=== PATIENT | male | born 1970 | race Two or more races ===

== ENCOUNTER → 2025-01-30 | Outpatient (BNVA) | payer MEDICAID, SELFPAY | END | disposition home or self-care (01) | PROVIDERS: PCP Nurse Practitioner Primary Care; Referring Provider Nurse Practitioner Primary Care; Visit Provider Nurse Practitioner Primary Care | DX: Z00.01 Encounter for general adult medical examination with abnormal findings (principal); R73.03 Prediabetes; Z12.11 Encounter for screening for malignant neoplasm of colon; Z01.83 Encounter for blood typing; E66.9 Obesity, unspecified; Z68.30 Body mass index [BMI] 30.0-30.9, adult; Z13.220 Encounter for screening for lipoid disorders | CPT/HCPCS: 99215 ==

== ENCOUNTER → 2025-02-16 | Outpatient (BNVA) | payer MEDICAID, SELFPAY | END | disposition home or self-care (01) | PROVIDERS: PCP Nurse Practitioner Primary Care; Referring Provider Nurse Practitioner Primary Care; Visit Provider Nurse Practitioner Primary Care | DX: Z71.2 Person consulting for explanation of examination or test findings (principal); R73.03 Prediabetes | CPT/HCPCS: 99212; G0463 ==

== ENCOUNTER → 2025-09-06 | Outpatient (BNVA) | payer MEDICAID, SELFPAY | END | disposition home or self-care (01) | PROVIDERS: PCP Nurse Practitioner Primary Care; Referring Provider Nurse Practitioner Primary Care; Visit Provider Nurse Practitioner Primary Care | DX: M79.672 Pain in left foot (principal); E78.5 Hyperlipidemia, unspecified; R73.03 Prediabetes; Z12.5 Encounter for screening for malignant neoplasm of prostate; M72.2 Plantar fascial fibromatosis | CPT/HCPCS: 99214 ==

== ENCOUNTER → 2025-09-06 | Outpatient (CLI) | payer MEDICAID, SELFPAY ==
--- NOTE | 2025-09-06 16:23 | XR_ITS ---
Examination: Foot, left, 3 views Technique: AP, oblique, lateral views foot, 3 views Date and time of exam: September 06, 2025, 1633 hours INDICATIONS: Left foot pain beginning 1 year ago FINDINGS: Fracture deformity at the base of the proximal phalanx fifth digit Mild narrowing first metatarsophalangeal joint No foreign body IMPRESSION: Recommend coned views of the toes to confirm fracture deformity at the base of the proximal phalanx fifth digit
== END | disposition home or self-care (01) ==
PROVIDERS: Referring Provider Nurse Practitioner Primary Care; Visit Provider Nurse Practitioner Primary Care
DX: S92.512A Displaced fracture of proximal phalanx of left lesser toe(s), initial encounter for closed fracture (principal); X58.XXXA Exposure to other specified factors, initial encounter
CPT/HCPCS: 73630

== ENCOUNTER → 2025-09-12 | Outpatient (BNVA) | payer MEDICAID, SELFPAY | END | disposition home or self-care (01) | PROVIDERS: PCP Nurse Practitioner Primary Care; Referring Provider Nurse Practitioner Primary Care; Visit Provider Nurse Practitioner Primary Care | DX: M79.672 Pain in left foot (principal); Z12.11 Encounter for screening for malignant neoplasm of colon; S92.515A Nondisplaced fracture of proximal phalanx of left lesser toe(s), initial encounter for closed fracture; X58.XXXA Exposure to other specified factors, initial encounter | CPT/HCPCS: 99215 ==

== ENCOUNTER → 2025-10-03 | Outpatient (BNVA) | payer MEDICAID, SELFPAY | END | disposition home or self-care (01) | PROVIDERS: PCP Nurse Practitioner Primary Care; Referring Provider Nurse Practitioner Primary Care; Visit Provider Nurse Practitioner Primary Care | DX: E78.2 Mixed hyperlipidemia (principal); Z12.11 Encounter for screening for malignant neoplasm of colon; R73.03 Prediabetes | CPT/HCPCS: 99212; G0463 ==